=== PATIENT | male | born 1975 | race Caucasian/White ===

== ENCOUNTER 2017-07-12 13:52 | Emergency (ER) | payer MEDICAID ==
[~2017-07-12] VITALS: Ht 172.7 cm; Wt 65.0 kg
[2017-07-12 14:18] VITALS: BP 162/86; PULSE 66; RESP 18; TEMP 98; O2SAT 96
[2017-07-12] MEDS ORDERED: ZOLO100T PO (15:21)
--- NOTE | 2017-07-12 15:40 | PD ---
HPI Chief Complaint: Eye Problems/Injury Time Seen by Provider: 15:23 Travel History International Travel<30 days: No Contact w/Intl Traveler<30days: No Traveled to known affect area: No History of Present Illness HPI 41-year-old male presents emergency department for evaluation of left eye pain that started 2 days ago. Says that he was working on cars when he accidentally rubbed his eye and likely got a piece of metal shaving in his eye. Says that he went to a hospital in [place] and they noticed a foreign body in the cornea. Patient was not discharged with any medication. Says he has some blurring of the left eye. Denies pain to the eye but says it is rather uncomfortable. denies pain with extraocular movements. Denies headaches. Patient does not wear corrective lenses. PFSH Past Medical History Depression: Yes Tetanus Vaccination: < 5 Years Past Surgical History Surgical History: No Previous Surgery Social History Alcohol Use: Yes Tobacco Use: Yes Substance Use: No Allergies-Medications (Allergen,Severity, Reaction): Coded Allergies: No Known Allergies (Unverified , 07/12/17) Reported Meds & Prescriptions Reported Meds & Active Scripts Active Erythromycin Opth Oint 5 Mg/Gm Oint 1 Applic LEFT EYE BID 7 Days Reported Zoloft (Sertraline HCl) 100 Mg Tab 100 Mg PO DAILY Review of Systems Except as stated in HPI: all other systems reviewed are Neg Physical Exam Narrative GENERAL: Well-nourished, well-developed patient, in NAD SKIN: Focused skin assessment warm/dry. No rashes or lesions. HEAD: Normocephalic. Atraumatic. EYES: No scleral icterus. Left eye-scleral injection with clear discharge, negative sidel's sign, 4 o'clock position with a round area of corneal irritation without obvious foreign body- no obvious rust ring L eye 20/70, R eye 20/30 Bilateral EOMI, PERRLA. Right eye no scleral injection. THROAT:Airway is patent. NECK: Supple, trachea midline. No JVD or lymphadenopathy. No meningismus. MUSCULOSKELETAL: No cyanosis, or edema. BACK: Nontender without obvious deformity. No CVA tenderness. Data Data Last Documented VS Vital Signs Date Time Temp Pulse Resp B/P (MAP) Pulse Ox O2 Delivery O2 Flow Rate FiO2 07/12/17 14:18 98.0 66 18 162/86 (111) 96 Orders Orders Ed Discharge Order (07/12/17 15:51) [facility] Medical Decision Making Medical Screen Exam Complete: Yes Emergency Medical Condition: Yes Differential Diagnosis Left eye corneal foreign body, abrasion, laceration Narrative Course 41-year-old female presents emergency department for evaluation of left eye pain that started 2 days ago. Says that he was working on cars when he accidentally rubbed his eye and likely got a piece of metal shaving in his eye. Says that he went to a hospital in [place] and they noticed a foreign body in the cornea. Patient was not discharged with any medication. Says he has some blurring of the left eye. Denies pain with extraocular movements. Denies headaches. Patient does not wear corrective lenses. Patient and were advised to come to [place] as we "have the equipment necessary to remove the foreign body from the cornea". They said that they were unable to see an office technologist for almost a week because of insurance issues and were concerned so they decided to come here for further evaluation. Vital signs are stable. A call was placed to Dr. Beltre, ophthalmology for consult. She suggested an appointment tomorrow morning. Advised the family of the recommended appointment. Family is advised to call Dr. Beltre's office today. Patient will be discharged erythromycin ointment. Advised to use this medication as prescribed. Physician Communication Physician Communication I spoke with Dr. Beltre, office technologist and she suggested an appointment tomorrow morning. We will give patient information regarding the office. Diagnosis Primary Impression: Corneal foreign body Qualified Codes: T15.02XA - Foreign body in cornea, left eye, initial encounter Referrals: Sofya Beltre MDdesktop analyst Additional Instructions: Use all medications as prescribed. Avoid rubbing the eye to avoid complications. Next Scripts Erythromycin Opth Oint (Erythromycin Opth Oint) 5 Mg/Gm Oint 1 APPLIC LEFT EYE BID for Infection for 7 Days, #1 TUBE 0 Refills Prov: Juan Carlos Pike MD 07/12/17 Disposition: 01 DISCHARGE HOME Condition: Stable Alina Hammond Jul 12, 2017 15:40
[2017-07-12] MEDS ORDERED: ERYTOIN10 LEFT EYE (15:46)
== END 2017-07-12 16:15 | disposition home or self-care (01) ==
LOC: NEPK 13:52
DX: T15.02XA Foreign body in cornea, left eye, initial encounter (principal); X58.XXXA Exposure to other specified factors, initial encounter; Y93.89 Activity, other specified
CPT/HCPCS: 99283